=== PATIENT | male | born 1985 | race Hispanic/Latino ===

== ENCOUNTER 2018-09-28 01:20 | Emergency (ER) | payer SELFPAY ==
[~2018-09-28] VITALS: Ht 157.5 cm; Wt 59.0 kg
[2018-09-28 02:02] VITALS: BP 135/70
== END 2018-09-28 02:15 | disposition home or self-care (01) | DRG 605 ==
LOC: ED 01:20
PROC: 0HQGXZZ Repair Left Hand Skin, External Approach (ICD-10-PCS; principal; 2018-09-28)
DX: S61.211A Laceration without foreign body of left index finger without damage to nail, initial encounter (principal); F17.290 Nicotine dependence, other tobacco product, uncomplicated; W26.0XXA Contact with knife, initial encounter; Y93.89 Activity, other specified; Y92.009 Unspecified place in unspecified non-institutional (private) residence as the place of occurrence of the external cause